=== PATIENT | female | born 1955 ===

== ENCOUNTER 2016-11-16 08:59 | Emergency (ER) | payer SELFPAY ==
[~2016-11-16] VITALS: Ht 162.6 cm; Wt 49.0 kg
[2016-11-16 09:00] VITALS: BP 134/75; PULSE 99; RESP 20; TEMP 99.1; O2SAT 96
--- NOTE | 2016-11-16 09:10 | PD ---
HPI . needs refills on methadone and percocet Chief Complaint: Medication Refill Request Time Seen by Provider: 09:06 Travel History International Travel<30 days: No Contact w/Intl Traveler<30days: No Traveled to known affect area: No History of Present Illness HPI 61-year-old female here requesting refill on her methadone and Percocet. She tells me she is about to run out of her medications and she needs more meds. She is from [place] and visiting and was told by her doctor in [place] to come to the emergency department. PFSH Past Medical History ?: Not Social History Tobacco Use: Yes Review of Systems General / Constitutional: No: Fever Eyes: No: Visual changes HENT: No: Headaches Cardiovascular: No: Chest Pain or Discomfort Respiratory: No: Shortness of Breath Gastrointestinal: No: Abdominal Pain Genitourinary: No: Dysuria Musculoskeletal: No: Pain Skin: No Rash Neurologic: No: Weakness Psychiatric: No: Depression Endocrine: No: Polydipsia Hematologic/Lymphatic: No: Easy Bruising Physical Exam Narrative GENERAL: AAO x 3, no acute distress, Well-nourished, well-developed patient. SKIN: Warm and dry. No visible rashes or bruising. HEAD: Normocephalic and atraumatic. EYES: No scleral icterus. No injection or drainage. EOM intact, PERRLA ENT: No nasal drainage noted. Mucous membranes pink. Airway patent. NECK: Supple, trachea midline. No JVD. CARDIOVASCULAR: Regular rate and rhythm without murmurs, gallops, or rubs. RESPIRATORY: Breath sounds equal bilaterally. No accessory muscle use. No rhonchi or rales. GASTROINTESTINAL: Abdomen soft, non-tender, nondistended. EXTREMITIES: No cyanosis or edema. BACK: No obvious deformity. NEURO: CN II-12 intact, internet salesperson strength normal b/l, UE and LE 5/5, no focal deficits PSYCH: AAO x 3, normal affect. Data Data Last Documented VS Vital Signs Date Time Temp Pulse Resp B/P Pulse Ox O2 Delivery O2 Flow Rate FiO2 11/16/16 09:00 99.1 99 20 134/75 96 Room Air MDM Medical Decision Making Medical Screen Exam Complete: Yes Emergency Medical Condition: No Medical Record Reviewed: Yes Differential Diagnosis Medication refill Narrative Course A medical screening exam was performed: At the time of evaluation the presenting medical condition was determined not to be of an emergent nature. The patient was given the option of receiving additional care, but declined. Patient was given options for additional community resources from which to obtain care. The Patient Has Been advised to seek medical attention for their presenting complaint. The patient has been advised to return to the ER at any time if an emergent condition develops. Diagnosis Primary Impression: Encounter for medical screening examination Condition: Stable Gisela Gonzalez Nov 16, 2016 09:10
== END 2016-11-16 10:36 | disposition left against medical advice (07) ==
LOC: NEPK 08:59
DX: Z76.0 Encounter for issue of repeat prescription (principal)
CPT/HCPCS: 99281